=== PATIENT | female | born 1970 | race Caucasian/White ===

== ENCOUNTER 2023-11-08 06:56 | Outpatient (CLI) | payer OTHER, SELFPAY ==
--- NOTE | ~2023-11-08 | CT_ITS ---
EXAMINATION: CT sinus wo con DATE: 11/08/2023 07:10 INDICATION: Chronic sinusitis. TECHNIQUE: Computed tomography (CT) of the paranasal sinuses was performed without intravenous contra st. Iterative reconstruction technique was employed. The dose-length product was 304.88 mGy-cm. COMPARISON: None FINDINGS: The frontal sinuses are clear. There is mild mucosal thickening in the bilateral ethmoid si nuses. The sphenoid sinuses are clear. There is mild mucosal thickening in left maxillary sinus. Righ t maxillary sinus is clear. The ostiomeatal units are patent. There is leftward deviation of superior nasal septum, rightward deviation of mid nasal septum, and leftward deviation of inferior nasal sept um. IMPRESSION: 1. Mild mucosal thickening in the ethmoid and left maxillary sinuses. Reviewed, dictated and finalized at location A.
== END 2023-11-08 06:57 | disposition home or self-care (01) ==
LOC: ANHIMG 06:57
PROVIDERS: PCP Internal Medicine; Visit Provider Otolaryngology
DX: J01.01 Acute recurrent maxillary sinusitis (principal); H69.90 Unspecified Eustachian tube disorder, unspecified ear; H65.499 Other chronic nonsuppurative otitis media, unspecified ear
CPT/HCPCS: 70486

== ENCOUNTER 2023-11-29 08:08 | Outpatient (CLI) | payer OTHER, SELFPAY | END 2023-11-29 08:09 | disposition home or self-care (01) | LOC: ANHAUDIO 08:08 | PROVIDERS: PCP Internal Medicine; Visit Provider Otolaryngology | DX: H65.499 Other chronic nonsuppurative otitis media, unspecified ear (principal); H69.90 Unspecified Eustachian tube disorder, unspecified ear; J01.01 Acute recurrent maxillary sinusitis; H90.A21 Sensorineural hearing loss, unilateral, right ear, with restricted hearing on the contralateral side; H90.A12 Conductive hearing loss, unilateral, left ear with restricted hearing on the contralateral side | CPT/HCPCS: 92557; 92567 ==

== ENCOUNTER 2025-06-03 06:20 | Emergency (ER) | payer OTHER, SELFPAY ==
--- NOTE | ~2025-06-03 | CT_ITS ---
CT HEAD CTA NECK, CTA HEAD Clinical History: left side numbness Comparison: None TECHNIQUE: Unenhanced axial images skull base to vertex Coronal, sagittal reformats Helical images thoracic inlet to vertex IV contrast information not listed in PACS Coronal, sagittal reformats. Multiplanar MIPS. CT images acquired with automatic exposure control for dose reduction DLP: 1701 mGy-cm Findings: CT HEAD Sulci, ventricles: Unremarkable. No intracerebral hemorrhage. No evidence acute territorial infarct. No mass effect, midline shift. Bony calvarium intact. Visualized paranasal sinuses: Clear. Mastoid air cells: Clear. No abnormal foci of contrast enhancement. Patent dural venous sinuses. CTA NECK NASCET Criteria utilized Aortic arch: No aneurysm or dissection. Great vessel origins: No stenosis. CCAs: No dissection. No stenosis. Cervical ICAs: No dissection. No stenosis. Vertebral Arteries: Patent. Left side arises directly from arch. Lung Apices: Clear. Thyroid: Unremarkable. Nodes: No enlarged nodes. Bones: No acute bony abnormality. CTA HEAD: Aneurysms: None. Intracranial ICAs: Patent, unremarkable. ACAs and their distal branches: Left A1 congenitally absent. Otherwise patent. A-Comm: Identified. Patent, unremarkable. MCAs and their distal branches: Patent, unremarkable. Basilar artery: Patent, unremarkable. cash posting representative and their distal branches: Patent, unremarkable. P-Comms: Identified. IMPRESSION: CT HEAD: 1. No acute intracranial findings. CTA NECK: 1. No ICA stenosis or other acute arterial abnormality. CTA HEAD: 1. No large vessel arterial occlusive disease or other acute findings. 2. No aneurysms. Reviewed, dictated and finalized at location R. STAFF NURSE
--- NOTE | ~2025-06-03 | XR_ITS ---
Examination: XR chest 2V Clinical History: left rib pain, LEFT ARM NUMBNESS Comparison: None Technique: PA and Lateral Findings: Cardiomediastinal silhouette normal size and configuration. Lungs clear. A few tiny calcified granulomata. No acute bony abnormality. IMPRESSION: 1. No acute cardiopulmonary findings. Reviewed, dictated and finalized at location R. ER MACHINIST
[2025-06-03 06:22] VITALS: BP 127/67; PULSE 105; RESP 18; TEMP 36.6; O2SAT 100
--- NOTE | 2025-06-03 07:20 | ECG_ITS ---
Test Date: 2025-06-03 07:34:57 Measurements Intervals [place] Rate: 86 P: 47 PA: 124 QRS: 87 QRSD: 98 T: 54 QT: 358 QTc: 428 Interpretive Statements SINUS RHYTHM BASELINE ARTIFACT- III NORMAL ECG No previous ECG available for comparison Electronically Signed On 06-03-2025 07:50:36 NUMERICAL CONTROL MACHINE MACHINIST by Urbano Herrera D.O.
[2025-06-03 07:44] VITALS: BP 122/89; PULSE 84; RESP 20; O2SAT 97
[2025-06-03 07:47] LABS: Hematocrit 41.1 % (37.0-47.0); Hemoglobin 13.4 g/dL (12.0-15.0); Immature Granulocyte Percent A 0.5 % (0-0.5); Lymphocytes Absolute Auto 1.54 K/mm3 (0.9-3.2); Mean Corpuscular HGB Conc 32.6 g/dl (32-36); Mean Corpuscular Hemoglobin 30.9 pg (26-34); Mean Corpuscular Volume 94.7 fl (80-100); Nucleated Red Blood Cells Absolute Auto 0.000 K/mm3 (0.0-0.012); Nucleated Red Blood Cells Perc 0.0 % (0.0-0.2); Platelet Count Result 244 k/mm3 (150-375); Red Blood Count 4.34 M/mm3 (4.2-5.4); White Blood Count 6.0 K/mm3 (4.5-10.0)
[2025-06-03 07:48] LABS: BEDSIDEPREGUCG Negative (Negative)
[2025-06-03 07:53] LABS: Add Urine Microscopic? YES; Appearance Urine Clear (Clear); Glucose Urine UA Negative (Negative); Leukocyte Esterase Ur Trace LEU/UL (Negative); Nitrate Urine Negative (Negative); Non Pathogenic Casts 0-2; Specific Grav Ur 1.012 (1.001-1.035)
--- NOTE | 2025-06-03 07:54 | ED.GENADULT ---
HPI - General Adult General Chief complaint: Extremity Problem,Nontraumatic Stated complaint: Numbness on left side Time Seen by Provider: 06/03/25 07:04 Source: patient, RN notes reviewed and old records reviewed Mode of arrival: ambulatory Limitations: no limitations History of Present Illness HPI narrative: THis is a 54 year old female with history of anxiety who presents for evaluation of left side numbness and tingling. She states that for the past 2 weeks she has felt pins and needles to left arm and left leg. She states this started after trying to open her door when it was frozen shut. She thinks she could have pulled a muscle. She reports mild left neck pain that resolves with biofreeze. She is also reporting tingling from left knee down her leg as well that occurs intermittently. She denies weakness, headache, difficulty with speech, blurred vision. She also reports having a few minute episode of left rib pain that has currently resolved. Related Data Home Medications ?Medication ?Instructions ?Recorded ?Confirmed ?Last Taken ?Type alprazolam 1 mg tablet (Xanax) 1 mg PO TID 03/03/23 06/03/25 06/03/25 History diphenhydramine HCl 25 mg capsule 25 mg PO QHS PRN 03/03/23 03/03/23 Unknown History (Benadryl) levocetirizine 5 mg tablet (Xyzal) 5 mg PO DAILY 12/27/23 Unknown History mecobalamin (vitamin B12) 1,000 1,000 mcg PO DAILY 12/27/23 Unknown History mcg chewable tablet Allergies Allergy/AdvReac Type Severity Reaction Status Date / Time cephalexin (From Keflex) Allergy Intermediate Tachycardia Verified 06/03/25 06:22 ciprofloxacin Allergy Intermediate Unknown Verified 06/03/25 06:22 Erythromycin Allergy Intermediate Gastrointestinal Uncoded 12/27/23 08:11 Upset PMFSH Past Medical History Medical History Chronic sinusitis Anxiety Allergies Surgical History Surgical History History of tubal ligation (~1995) History of hernia repair (~1969) Family History Family History Father Lymphoma Mother Pancreatic cancer Hypertension Depression Anxiety Grandparent Heart disease Breast cancer Social History Social History Social History: Caffeine-tea Smoking packs per day: 1 Smoking cigarettes per day: 20.0 Years smoked: 25 Smoking pack-years: 25.00 Smoking status: Current every day smoker Tobacco type: cigarettes Second hand tobacco smoke exposure: Yes Alcohol intake: never Substance use: never Substance use type: does not use Lack of Transportation: No Lack of Food: Never True Current Housing: I Have Housing Concerned About Future Housing: No Difficulty Paying Gas/Electric Bills: No Difficulty Paying for Meds: No Currently Unemployed: No Education: High School Diploma/GED Difficulty w/ Childcare or Family Care: No Exam Const: General: no acute distress and alert Nutritional Appearance: well nourished Orientation/consciousness: patient oriented x3 Limitations: no limitations HENMT: Head: normal to inspection Face and sinus: normal facial exam Mouth: Yes Normal oral and palatal mucosa present, Yes lip normal and Yes moist mucous membranes Throat: posterior oropharynx normal and uvula midline Eyes: Conjunctivae: conjunctivae normal Pupils: Equal, round and reactive pupils present EOM: EOMs intact bilaterally Neck: Neck: normal visual inspection Chest: Chest palpation & inspection: normal inspection of the chest Resp: Effort & Inspection: normal respiratory effort Auscultation: clear to auscultation bilaterally Cardio: Rate: regular rate Rhythm: regular rhythm Heart sounds: no murmurs GI: GI Palp: Yes Soft to palpation, No Tenderness to palpation present (GI), No Guarding due to palpation present (GI) and No Rigid due to palpation Auscultation: normal bowel sounds : General: Yes no CVA tenderness Back/Spine/Pelvis: Back: no CVA tenderness Skin: General skin exam: normal color Rashes: no rashes Neuro: General: patient oriented x3, moves all extremities, no focal motor deficits and CN's II-XI intact bilaterally Cranial nerves: Yes Nystagmus not present Speech: normal speech Gait exam (Neuro): Normal gait present Extrem: General: normal to inspection, no clubbing, cyanosis or edema and no pedal edema Psych: Mental Status: mental status grossly normal Affect: normal affect Attitude: cooperative Course Reevaluation(s) Reevaluation #1: I have spoke with patient about labs are unremarkable and CTA did not shows any acute findings or stenosis. She is reports that heating pad and pain patches resolves her tingling pain to left arm which makes it seem to be peripheral issue and not CVA. She had normal neurological examination. sHe reports she has prescription for muscle relaxer. I discussed I will place on steroid dose as well. She will follow up with PCP Date: 06/03/25 Time: 08:59 Vital Signs Vital signs: Vital Signs Temperature 97.9 F 06/03/25 06:22 Pulse Rate 105 H 06/03/25 06:22 Respiratory Rate 18 06/03/25 06:22 Blood Pressure 127/67 06/03/25 06:22 Pulse Oximetry 100 06/03/25 06:22 Temperature 97.9 F 06/03/25 06:22 Pulse Rate 76 06/03/25 09:39 Respiratory Rate 20 06/03/25 09:39 Blood Pressure 117/68 06/03/25 09:39 Pulse Oximetry 98 06/03/25 09:39 [facility] Narrative Medical decision making narrative: Patient reports paresthesia to left lower arm and left lower leg that it is unclear if related or two separate injuries/issues. HEr neurological exam is normal. SHe reports symptoms worse with heating pain so may be muscular. labs, CTA Brain and carotid were ordered and troponin with her reports brief episode of left rib pain. CTA did not show any stenosis or aneuryms. CT Brain negative as well. PAtient has normal exam so will discharge for outpatient evaluation. Does not seem to be TIA or cva. She was given return precautions. Differential Diagnosis Differential Diagnosis: nerve radiculopathy, anxiety, TIA, CVA, neuropathy, strained muscle, Medical Records I have reviewed the following patient records and this information was taken into consideration when formulating the assessment and plan.: previous labs and previous hospitalizations Lab Data [facility] Lab Attestation statement: I personally reviewed the patient's lab results. 06/03/25 07:40 06/03/25 07:40 Labs: Lab Results 06/03/25 06/03/25 Range/Units 07:40 07:44 WBC 6.0 (4.5-10.0) K/mm3 RBC 4.34 (4.2-5.4) M/mm3 Hgb 13.4 (12.0-15.0) g/dL Hct 41.1 (37.0-47.0) % MCV 94.7 (80-100) fl MCH 30.9 (26-34) pg MCHC 32.6 (32-36) g/dl RDW 13.1 (11.5-14.5) % Plt Count 244 (150-375) k/mm3 MPV 9.6 (7.4-10.4) fl Immature Gran % (Auto) 0.5 (0-0.5) % Neut % (Auto) 63.7 (45.5-73.1) % Lymph % (Auto) 25.6 (18.3-44.2) % Tate % (Auto) 6.7 (2.6-8.5) % Eos % (Auto) 2.2 (0-4.4) % Baso % (Auto) 1.3 H (0.2-1.2) % Lymph # (Auto) 1.54 (0.9-3.2) K/mm3 Tate # (Auto) 0.4 (0.1-0.6) K/mm3 Eos # (Auto) 0.1 (0-0.3) K/mm3 Baso # (Auto) 0.1 (0.0-0.1) K/mm3 Abs Immat Gran (auto) 0.03 (0.00-0.031) K/mm3 Absolute Neuts (auto) 3.8 (1.3-6.7) K/mm3 Absolute Nucleated RBC 0.000 (0.0-0.012) K/mm3 Nucleated RBC % 0.0 (0.0-0.2) % PT 13.0 (11.1-14.7) Seconds INR 1.0 APTT 26.0 (22.3-36.8) Seconds Sodium 138 (137-145) mmol/L Potassium 3.9 (3.4-5.0) mmol/L Chloride 110 H (98-107) mmol/L Carbon Dioxide 25 (22-30) mmol/L Anion Gap 3 L (4-12) mmol/L BUN 8 (7-17) mg/dL Creatinine 0.65 L (0.7-1.0) mg/dL Estim Creat Clear Calc 80 ml/min Estimated GFR > 60 (59 - ) Glucose 92 (65-110) mg/dL Calcium 9.1 (8.4-10.2) mg/dL Magnesium 2.2 (1.6-2.3) mg/dL Total Bilirubin 0.4 (0.2-1.3) mg/dL AST 23 (14-36) U/L ALT 11 (6-35) U/L Alkaline Phosphatase 66 (38-126) U/L Troponin I < 0.012 (0.000-0.034) ng/mL NT-Pro-B Natriuret Pep 179 H (19.9-100) pg/mL Total Protein 6.8 (6.3-8.2) g/dL Albumin 4.3 (3.5-5.1) g/dL Lipase 44 (23-300) U/L Urine Color Yellow (Yellow) Urine Appearance Clear (Clear) Urine pH 7.5 (5.0-9.0) Ur Specific [place] 1.012 (1.001-1.035) Urine Protein Negative (Negative) mg/dL Urine Glucose (UA) Negative (Negative) mg/dL Urine Ketones Negative (Negative) mg/dL Ur Blood (Man) Negative (Negative) Urine Nitrate Negative (Negative) Urine Bilirubin Negative (Negative) Urine Urobilinogen 0.2 (<2.0) mg/dL Leukocyte Esterase Rfl Trace H (Negative) TERE/UL Urine RBC 0-2 (0-2) /hpf Urine WBC 0-5 (0-3) /hpf Ur Squamous Epith Cells None seen (Few) /hpf Urine Bacteria None seen /hpf Urine Casts 0-2 POC Urine HCG, Qual Negative (Negative) Urine Opiates Screen Negative (Negative) Urine Methadone Screen Negative (Negative) Ur Barbiturates Screen Negative (Negative) Ur Phencyclidine Scrn Negative (Negative) Ur Amphetamine Screen Negative (Negative) U Benzodiazepines Scrn Positive A (Negative) Urine Cocaine Screen Negative (Negative) U Cannabinoids Screen Negative (Negative) Imaging Data Radiologist's impression: ITS Impressions Chest X-Ray 06/03/25 08:26 IMPRESSION: 1. No acute cardiopulmonary findings. Head/Neck CTA 06/03/25 08:27 IMPRESSION: CT HEAD: 1. No acute intracranial findings. CTA NECK: 1. No ICA stenosis or other acute arterial abnormality. CTA HEAD: 1. No large vessel arterial occlusive disease or other acute findings. 2. No aneurysms. ECG Data EKG #1: Attestation: I personally reviewed and interpreted this ECG as follows: ECG completion date: 06/03/25 ECG completion time: 09:02 normal rate, sinus rhythm, no ST changes, NL axis and no acute changes Discharge Plan Discharge Clinical Impression: Paresthesia and pain of extremity Patient Disposition: Home Condition: Stable Instructions: Antibiotic Form, Paresthesia (ED) Additional Instructions: I recommend that your follow up with your primary care provider within 1 week. If your symptoms worsen return to ER Patient Language: Spanish Prescriptions: New methylprednisolone [Medrol (Gideon)] 4 mg tablets,dose pack See Rx Instructions .ROUTE .COMPLEX Qty: 21 0RF Rx Instructions: for 6 days No Action diphenhydramine HCl [Benadryl] 25 mg capsule 25 mg PO QHS PRN alprazolam [Xanax] 1 mg tablet 1 mg PO TID levocetirizine [Xyzal] 5 mg tablet 5 mg PO DAILY mecobalamin (vitamin B12) 1,000 mcg tablet,chewable 1,000 mcg PO DAILY Follow-up/Referrals: Irving,Harvey De Jesus MD [Primary Care Provider] Quality Stroke Scale Stroke Scale 1: Stroke scale date:: 06/03/25 Stroke scale time:: 07:04 1a Level of consciousness: alert-0 1b Level of consciousness questions: answers both correctly-0 1c Level of consciousness commands: obeys both correctly-0 2 Best gaze: normal-0 3 Visual: no visual loss-0 4 Facial palsy: normal-0 5a Motor: left arm: no drift-0 5b Motor: right arm: no drift-0 6a Motor: left leg: no drift-0 6b Motor: right leg: no drift-0 7 Limb ataxia: absent-0 8 Sensory: normal-0 9 Best language: no aphasia-0 10 Dysarthria: normal-0 11 Extinction and inattention: no abnormality-0 Level:: 0
[2025-06-03 08:00] LABS: Alanine Aminotransferase 11 U/L (6-35); Albumin Level 4.3 g/dL (3.5-5.1); Alkaline Phosphatase 66 U/L (38-126); Anion Gap 3 mmol/L (4-12); Aspartate Amino Transferase 23 U/L (14-36); Bilirubin,Total 0.4 mg/dL (0.2-1.3); Blood Urea Nitrogen 8 mg/dL (7-17); Calcium 9.1 mg/dL (8.4-10.2); Carbon Dioxide 25 mmol/L (22-30); Chloride 110 mmol/L (98-107); Estimated CRCL calculation 80 ml/min; Estimated Glomerular Filt Rate > 60; Glucose 92 mg/dL (65-110); Lipase 44 U/L (23-300); Magnesium 2.2 mg/dL (1.6-2.3); Potassium 3.9 mmol/L (3.4-5.0); Sodium 138 mmol/L (137-145); Total Protein 6.8 g/dL (6.3-8.2)
[2025-06-03 08:07] LABS: INR 1.0; Partial Thromboplastin Time 26.0 Seconds (22.3-36.8); Prothrombin Time 13.0 Seconds (11.1-14.7)
[2025-06-03 08:11] LABS: NT Pro B Type Natriuretic Pept 179 pg/mL (19.9-100); Troponin I < 0.012 ng/mL (0.000-0.034)
[2025-06-03 08:52] LABS: Cannabinoid Screen Urine Negative (Negative)
--- OUTSIDE RECORDS SUMMARY | 2025-06-03 09:21 | XMS_ITS | Data Portability ---
Author Organization [facility] Iveth [facility] Address [address] [place] [address] Care Team Providers Care Summer Associate Name Role Phone MARK MOLINA Primary Care Provider YUN KLINE Tie Puller Assessment Encounter Date Assessment Date Assessment LastModified by Organization Details LastModified Time 05/12/2020 05/12/2020 ASHANTI Looney PA-S Not available 05/12/2020 22:51:43 Plan of Treatment Reminders Order Date Submit Date Provider Last Modified By Organization Details Last Modified Time Details Appointments None record ed. 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 R, respir atory specim en - woodri ewa 1300 2020 [facility], [place] (Lab), [address] [place] [address], [id number], 1 11:26:14 PPD (purif ied protei n deriva tive), skin test 2019 020 In-Office Order, Internal Use Only DO Not Attach Compendium DO Not Attach Compendium, Do Not Delete/merge, 0 13:40:11 PPD (purif ied protei n deriva tive), skin test 2019 LOLIS In-Office Order, Internal Use Only DO Not Attach Compendium DO Not Attach Compendium, Do Not Delete/merge, 0 18:03:06 urinal ysis, dipsti ck 2019 [email or web address] In-Office Order, Internal Use Only DO Not Attach Compendium DO Not Attach Compendium, Do Not Delete/merge, [id number] 0 18:20:23 Referral ilan york referr al 2019 Chris (), [address] [place] [address], [phone], 0 12:05:49 Procedures None record ed. Surgeries None record ed. Imaging None record ed. Medication Orders cetiri zine 10 mg tablet 2019 INTERFACE Not available 0 17:16:31 Tubers ol 5 tub. unit/0 .1 mL intrad ermal inject ion soluti on 2019 [email or web address] Not available 0 17:47:45 sertra line 25 mg tablet 2019 [email or web address] Not available 0 12:53:19 Zoloft 50 mg tablet 2019 Not available 0 15:42:32 Patient TargetsNo targets recorded. Patient Instructions Encounter Date Encounter Id Patient Instructions Last Modified By Organization Details Last Modified Time 04/15/2020 [id number] anxiety disorder : care instructions Not available 04/15/2020 12:05:45 05/12/2020 [id number] managing your allergies: care instructions Not available 05/12/2020 17:16:28 07/04/2020 [id number] Reviewed the following recommendations: -Stay home and separate from others as much as possible. -Monitor your symptoms and seek medical attention for trouble breathing, persistent chest pain, confusion, or bluish lips or face. -Wear a mask if you must be around other people. -Wash your hands often for 20 seconds with soap and water and clean high-touch surfaces daily -You may discontinue home isolation if your symptoms are improving and it has been 10 days since symptoms started. [email or web address] Not available 07/04/2020 11:13:17 Reason for Referral Counseling Referral for Gene ralized anxiety disorder Anxiety Referring Physician: Yun Kline, Power Cutting Machine Operator, Encounter Date: 04/15/2020 Results Created Date Observation Date Name Description Value Unit Range Abnormal Flag Note LastModifiedBy Organization Detail LastModifiedTime 05/12/2005/12/2020 urina lysis , dipst ick Leukocytes Trace Not Available In-Offi ce Order Internal Use Only DO Not Attach Compendium DO Not Attach Compendium, Do Not Delete/merge, [id number] 05/12/2020 16:35:20 05/12/20 20 05/12/2020 urina lysis , dipst ick Nitrite negati ve Not Available In-Office Order Internal Use Only DO Not Attach Compendium DO Not Attach Compendium, Do Not Delete/merge, [id number] 05/12/2020 16:35:20 05/12/20 20 05/12/2020 urina lysis , dipst ick Urobilinogen .2 Not Available In-Of fice Order Internal Use Only DO Not Attach Compendium DO Not Attach Compendium, Do Not Delete/merge, [id number] 05/12/2020 16:35:20 05/12/20 20 05/12/2020 urina lysis , dipst ick Protein Negati ve Not Available In-Office Order Internal Use Only DO Not Attach Compendium DO Not Attach Compendium, Do Not Delete/merge, [id number] 05/12/2020 16:35:20 05/12/20 20 05/12/2020 urina lysis , dipst ick pH 8.5 Not Available In-Office Order Internal Use Only DO Not Attach Compendium DO Not Attach Compendium, Do Not Delete/merge, [id number] 05/12/2020 16:35:20 05/12/20 20 05/12/2020 urina lysis , dipst ick Blood Negati ve Not Available In-Office Order Internal Use Only DO Not Attach Compendium DO Not Attach Compendium, Do Not Delete/merge, [id number] 05/12/2020 16:35:20 05/12/20 20 05/12/2020 urina lysis , dipst ick Specific [place] 1.020 Not Available In-Off ice Order Internal Use Only DO Not Attach Compendium DO Not Attach Compendium, Do Not Delete/merge, [id number] 05/12/2020 16:35:20 05/12/20 20 05/12/2020 urina lysis , dipst ick Ketone Negati ve Not Available In-Office Order Internal Use Only DO Not Attach Compendium DO Not Attach Compendium, Do Not Delete/merge, [id number] 05/12/2020 16:35:20 05/12/20 20 05/12/2020 urina lysis , dipst ick Bilirubin Negati ve Not Available In-Office Order Internal Use Only DO Not Attach Compendium DO Not Attach Compendium, Do Not Delete/merge, [id number] 05/12/2020 16:35:20 05/12/20 20 05/12/2020 urina lysis , dipst ick Glucose Negati ve Not Available In-Office Order Internal Use Only DO Not Attach Compendium DO Not Attach Compendium, Do Not Delete/merge, [id number] 05/12/2020 16:35:20 05/15/20 20 05/15/2020 PPD (urvashi fied prote in deriv ative ), skin test Result Negati ve Not Available In-Office Order Internal Use Only DO Not Attach Compendium DO Not Attach Compendium, Do Not Delete/merge, [id number] 05/15/2020 13:20:11 05/19/20 20 05/19/2020 PPD (urvashi fied prote in deriv ative ), skin test Result Negati ve Not Available In-Office Order Internal Use Only DO Not Attach Compendium DO Not Attach Compendium, Do Not Delete/merge, [id number] 05/12/2020 17:12:44 Result Notes None recorded. Problems Name Problem SNOMED Code Status Onset Date Resolution Date Notes Provider Name and Address Organization Details Recorded Time Tobacco dependence syndrome 80223804 Active Cameron Peacock null, [place] - [facility] 6 10:38:01 Abnormal cervical Papanicolao u smear 668824562 Active Cameron Peacock [place] - [facility] 6 10:38:01 Cervicovagi nal cytology: Low grade squamous intraepithe lial lesion 715217548 Active Cameron Peacock null, [place] - [facility] 6 10:38:01 Abnormal vaginal Papanicolao u smear 008675123 Active Cameron marcus, [facility] 6 10:38:01 Low grade squamous intraepithe lial lesion on cervical Papanicolao u smear 1136677859959 5 Active Cameron marcus, [facility] 6 10:44:48 Problem Notes None recorded. Procedures Surgical History Date Name Laterality Status Provider Name and Address Organization Details Recorded Time 06/27/19 19 Date of Last Mammogram completed Gwen Rosales MA [facility] 05/12/2020 16:30:35 01/05/20 18 Vulvar Biopsy completed Pierre Padilla [facility] 018 11:40:06 10/26/19 18 LEEP completed Anthony Gonzalez [place] - [facility] 08/15/2018 09:55:29 08/31/19 18 Colposcopy completed Vandana Streeter MD Attn: [employer] [place], [address], [facility] 08/30/2017 11:25:29 07/21/19 18 Date of Last Pap Smear completed Shannan Velez [place] [facility] 11/08/2017 08:24:45 03/25/20 16 Colposcopy completed Cameron Peacock [facility] 03/25/2016 15:25:58 06/27/18 96 Tubal Ligation completed Shannan Velez MA [facility] 2015 14:47:45 Other completed Shannan Velez MA [facility] 03/25 14:47:45 Imaging Results None recorded. Procedure Notes None recorded. Medical Equipment None Reported. Allergies Allergen ID Allergen Name Allergen Category Reaction Reaction Severity Criticality Documentation Date Start Date Code Code System Note Provider Name and Address Organization Details Recorded Time 345416 Keflex medicatio n tachycard ia severe Not available 07/21/201788569 7 RxNorm TABATHA Miller, [facility] 8 11:31:10 531642 Cipro medicatio n tachycard ia severe Not available 07/21/201765154 3 RxNorm TABATHA Miller, [facility] 8 11:31:28 45198 erythromy madalyn medicatio n vomiting severe Not available 02/12/2016 4053 RxNorm Diarr Mary trinidad MA [facility], [facility] 6 14:47:04 Medications Name Sig Start Date Stop Date Status Note LastModified by Organization Details LastModified Time amoxicill in 500 mg capsule active Not Available Not Available Not Available doxycycli ne hyclate 100 mg capsule active Not Available Not Available Not Available cetirizin e 10 mg tablet Take 1 tablet every day by oral route. active Not Available Not Available No t Available alprazola m 1 mg tablet Take 1 tablet 3 times a day by oral route. active Not Available Not Available No t Available fluconazo le 150 mg tablet Take 1 tablet by oral route for 1 day. 05/12 completed Not Available Not Available Not Available Tubersol 5 tub. unit/0.1 mL intraderm al injection solution Administ er .1ml interder arnulfo 2019 active Not Available Not Available Not Avai lable acyclovir 800 mg tablet Take 1 tablet every day by oral route for 1 day. 05/12 completed Not Available Not Available Not Available Flagyl 500 mg tablet Take 1 tablet twice a day by oral route for 7 days. 01/04 completed Not Available Not Available Not Available sertralin e 25 mg tablet Take 1 tablet every day by oral route. 05/21 completed Patient requeste d to increase med back to 50mg daily Not Available Not Available Not Available prednisol one 15 mg/5 mL oral solution Take 5 mL every day by oral route. 01/04 completed Not Available Not Available Not Available methylpre dnisolone 4 mg tablets in a dose pack 05/12 completed Not Available Not Available Not Available sertralin e 50 mg tablet TAKE ONE TABLET BY MOUTH AT BEDTIME 2020 active Not Available Not Available Not Avai lable Daily-Vit e tablet Take 1 tablet every day by oral route. active Not Available Not Available No t Available ProAir HFA 90 mcg/actua tion aerosol inhaler active Not Available Not Available Not Available calcium 600 mg (as carbonate )-vitamin D3 10 mcg (400 unit) tablet Take 1 tablet twice a day by oral route. active Not Available Not Available No t Available Vitals Date Recorded Body height Body mass index (BMI) Body weight Systolic And Diastolic Provider Name and Address Organization Details Last Updated DateTime 04/15/2020 170.18 cm 21.6 kg/m2 15358.75 g 122/76 mm[Hg] Jerri Haddad MA [facility] 04/15/2020 11:11:00 Date Recorded Body height Provider Name an d Address Organization Details Last Updated DateTime 05/02/2020 170.18 cm Jerri Haddad MA [facility] 05/02/20 20 15:18:46 Date Recorded Body height Body mass index (BMI) Body weight Systolic And Diastolic Provider Name and Address Organization Details Last Updated DateTime 05/12/2020 170.18 cm 21.3 kg/m2 84629.56 g 112/68 mm[Hg] Gwen Rosales MA [facility] 05/12/2020 16:37:36 Date Recorded Body height Provider Name an d Address Organization Details Last Updated DateTime 05/15/2020 170.18 cm Gwen Rosales MA [facility] 05/15 13:19:25 Social History Question Answer Notes LastModified by Organizat ion Details LastModified Time Tobacco Smoking Status Current Every Day Smoker Vandana Streeter MD Attn: [facility],[address] [place], [address], [facility] 08/15/2018 10:45:56 Do You Have An Advance Directive? No Information not available 03/25/2016 Is Blood Transfusion Acceptable In An Emergency? Yes Information not available 03/25/2016 What Is Your Level Of Caffeine Consumption? Heavy Information not available 03/25/2016 How Much Tobacco Do You Chew? None Information not available 03/25/2016 What Type Of Diet Are You Following? REGULAR Information not available 03/25/2016 Which Illicit Or Recreational Drugs Have You Used? Denies None Information not available 05/12/2020 Education 2 Year College Information not available 03/25/2016 Live Alone Or With Others? With Others Information not available 03/25/2016 What Was The Date Of Your Most Recent Tobacco Screening? 05/12/2020 Information not available 05/12/2020 How Many Children Do You Have? 3 Information not available 05/12/2020 Performs Monthly Self-breast Exam? Yes Information not available 03/25/2016 Do You Use Protection During Sex? Usually Information not available 03/25/2016 What Is Your Relationship Status? Single Information not available 03/25/2016 Seat Belts Used Routinely Yes Information not available 03/25/2016 Are You Sexually Active? Yes Information not available 03/25/2016 At What Age Did You Start Smoking Tobacco? 27 Information not available 03/25/2016 How Much Tobacco Do You Smoke? 0.5 PPD [email or web address] Information not available 05/02/2020 General Stress Level Low Information not available 03/25/2016 Do You Use Sunscreen Routinely? No Information not available 03/25/2016 On What Date Was Tobacco Cessation Counseling Provided? 05/12/2020 Interested In Quitting Information not available 05/12/2020 How Many Years Have You Smoked Tobacco? 18 Information not available 03/25/2016 Sex: Unknown Functional Status Question Answer Note LastModified by Organizat ion Details LastModified Time What is your level of alcohol consumption? None Information not available 03/25/2016 Do you or have you ever used smokeless tobacco? Never used smokeless tobacco Information not available 05/12/2020 Are you currently employed? 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 Never used electronic cigarettes Information not available 05/12/2020 What is your exercise level? None Information not available 03/25/2016 Mental Status None recorded. Family History Relationship Description Onset Age of this Age Resolved Age Notes LastModified by Organization Details LastModified Time Paternal Grandmother Malignant neoplasm of breast [email or web address] Not available 2015 10:38:09 Medical History Condition Response Other Y High Blood Pressure N Breast Cancer N Thyroid Problems N Kidney or Bladder Problems N Lung Disease N Depression N Blood Clots N GI Problems N Acne N Eating Disorder N Breast Problem N Anemia N Anesthesia Complications N Headaches/Migraines N Anxiety Disorder Y Ovarian Cancer N Diabetes N Muscle, Joint, or Bone Problems N Blood Transfusions N Seizures/Epilepsy N Infertility N Polyps N Acid Reflux (GERD) N Cancer N Abuse/Domestic Violence N Asthma N Endometriosis N High Cholesterol N Hepatitis N Liver Disease N Heart Disease N Pre-Eclampsia N Osteoporosis N Gynecological History Statement/Question Response Abnormal Pap Y Date of Last Mammogram 06/27/2018 Flow Light STIs/STDs N HPV Vaccine N Age at Menarche 13 Current Control Method Tubal Ligat ion Age at First Child 15 If Post Menopausal, Age at Menopause 47 Sexually Active? Y Menses Monthly N Date of Last Pap Smear 07/21/2017 Sexual Problems? N LMP Definite Desired Control Method Sterilizati on Obstetrics History GPAL:G 3 P 3 0 0 3 Type Value Multiple Births 0 Full Term 3 Induced 0 Spontaneous 0 Premature 0 Living 3 Ectopics 0 Total 3 Immunizations Vaccine Type Date Status Note Provider Nam e and Address Organization Details Recorded Time COVID-19, mRNA, LNP-S, PF, 100 mcg/0.5mL dose or 50 mcg/0.25mL dose 07/31/2020 completed Rogelio God[place], [place] [facility] 12/23/2020 13:22:59 COVID-19, mRNA, LNP-S, PF, 100 mcg/0.5mL dose or 50 mcg/0.25mL dose 09/02/2020 paxton God[place] [facility] 12/23/2020 13:23:15 Tdap 05/12/2020 completed Gwen Rosales [place], [place] [facility] 05/21/2020 15:49:08 Past Encounters Encounter ID Performer Location Encounter Start Date Encounter Closed Date Diagnosis/Indication Diagnosis SNOMED-CT Code Diagnosis ICD10 Code Diagnosis IMO Codes Diagnosis Note [id number] MD Chris Pickett (Adult Med) [address] [place] [phone] 02/12/2016 11:23:15 02/12/2016 12:22:03 Tobacco dependence syndrome 72581851 F17.290 Advised to quit smoking Screening for malignant neoplasm of breast 905263283 Z12.31 Gynecologi c examination 25915742 Z01.645 [id number] MD [facility] ([facility]) [address] [place] [phone] 03/25/2016 13:48:52 03/25/2016 15:59:58 Abnormal vaginal Papanicolaou smear 393971674 R87.459 [id number] [facility] [address] [place] [address] [phone] 04/02/2016 09:50:34 04/06/2016 12:46:30 Low grade squamous intraepithelial lesion on cervical Papanicolaou smear 6856323911 9105 R87.612 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 ECC was benign cells. This result is consistent with pap result. Recommende d follow up pap smear in six months for follow up. Patient seemed to understand and agrees. Literature on cervical dysplasia was given. [id number] [facility] [address] [place] [address] [phone] 07/21/2017 11:07:49 07/21/2017 13:04:47 Gynecologic examination 44857013 Z01.411 Age appropriat e counseling done. Screening mammography 23 927959 Z12.31 Venereal d isease screening 788559481 Z11.3 Patient refused blood work and nuswab Candidiasis of vagina 72 580996 B37.3 Counseled about it. Cervicovag inal cytology: Low grade squamous intraepithelial lesion 117483732 R87.612 in 2015 patient had LGSIL. Patient has colposcopy done at that time. No pathology report in chart. Advised nurse Luis to get records. PAP done today. Counseled about HPV and safe sex , use of condoms. If PAP comes back abnormal schedule for colposcopy . Irregular periods 961961 07 N92.6 Counseled about it including menopause. Offered work up. Patient refused to do blood work or ultrasound . She say she is self pay. [id number] MD Chris Lau ([facility]) [address] [place] [address] [phone] 08/30/2017 09:42:11 08/30/2017 13:05:43 Low grade squamous intraepithelial lesion on cervical Papanicolaou smear 4906796612 9105 R87.612 Counseled thoroughly about LGSIL and HPV. Safe sex counseling done. Counseled about colposcopy , cervical biopsy and ECC. Counseled about the procedure and its risks including infection, bleeding, damage to internal organs, indicated procedures . Patient verbalized understand ing. Consent signed which is in chart. Advised patient to go to ER if bleeding more than a pad per hour, fever > 100.4, and severe pain. test in office negative. [id number] Vandana Streeter MD [facility] ([facility]) [address] [place] [address] [phone] 09/06/2017 10:48:27 09/06/2017 13:24:29 Cervical intraepithelial neoplasia grade 2 188119953 N87.1 d/w patient pathology report of can not exclude MADALYN 2. Safe sex counseling and use of condoms. Counseled about LEEP. COUNSELED ABOUT RISK OF INFECTION, BLEEDING, BLOOD TRANSFUSIO N AND ITS RISKS, DAMAGE TO INTERNAL ORGANS, INDICATED PROCEDURES INCLUDING HYSTERECTO MY, CERVICAL INCOMPETEN CY, PTL, PTD, MISCARRIAG ES. Patient VERBALIZED UNDERSTAND ING.Urine test in office - negative today. [id number] Vandana Streeter MD [facility] ([facility]) [address] [place] [address] [phone] 11/08/2017 08:11:12 11/08/2017 10:43:02 Cervical intraepithelial neoplasia grade 2 228090776 N87.1 s/p LEEP. D/W patient pathology report and positive margins. Looking at her anatomy of cervix reLEEP will not be feasible. Offered patient repeating cytology and ECC in 4 months vs hysterecto my. Patient opted cytology and ECC in 4 months.Adv ised patient to go to ER if vaginal bleeding more than pad per hour, fever greater than 100.4, severe pelvic pain. Bacterial vaginosis 4197 56721 N76.0 Counseled about it. [id number] MD Chris Lau ([facility]) [address] [place] [address] [phone] 11/14/2017 12:04:49 11/14/2017 15:40:11 Cervical intraepithelial neoplasia grade 2 851203213 N87.1 s/p LEEP. D/W patient pathology report and positive margins. Looking at her anatomy of cervix reLEEP will not be feasible. Patient scheduled for cytology and ECC in 4 months. Patient say she has questions about hysterecto my in case she decides on it. Counseled patient about different forms of hysterecto mies, risks, hospital stay and recovery time for each type of hysterecto my, when to rreturn to work. Answered all questions. Patient scheduled for cytology and ECC in 4 months. She say at this time she wanted to do PAP & ECC in 4 months and in case she decideds on hysterecto my she will let me know.Advis ed patient to go to ER if vaginal bleeding more than pad per hour, fever greater than 100.4, severe pelvic pain. [id number] [facility] [address] [place] [address] [phone] 01/04/2018 10:26:05 01/04/2018 11:58:04 Lesion of vulva 126778849 N90.9 Exposure t o sexually transmissible disorder 501022078 Z20.2 [id number] MD Chris Lau ([facility]) [address] [place] [address] [phone] 03/13/2018 09:23:55 03/13/2018 10:29:25 Cervical intraepithelial neoplasia grade 2 977082552 N87.1 s/p LEEP. D/W patient pathology report and positive margins. Looking at her anatomy of cervix reLEEP will not be feasible. Cytology and ECC done today.Advi sed patient to go to ER if vaginal bleeding more than pad per hour, fever greater than 100.4, severe pelvic pain. [id number] MD Chris Lau ([facility]) [address] [place] [address] [phone] 03/27/2018 09:35:02 03/28/2018 09:37:30 Cervical intraepithelial neoplasia grade 2 983347020 N87.1 s/p LEEP. D/W patient Cytology and ECC report.Sec ondary to atypical squamous metaplasia on ECC - middleware systems architect referral. Cotesting in 4 months. [id number] MD Chris Lau ([facility]) [address] [place] [address] [phone] 08/15/2018 09:38:52 08/15/2018 14:32:26 Gynecologic examination 10585324 Z01.411 Age appropriat e counseling done. Smoker 19566035 F17.200 Breast lump 83653545 N63 .0 COUNSELED THOROUGHLY ABOUT IT. Cervical intraepithelial neoplasia grade 2 795363879 N87.1 s/p LEEP. D/W patient Cytology and ECC report.Sec ondary to atypical squamous metaplasia on ECC - middleware systems architect ONCOLOGY referral. PAP & ECC done today. Cotesting in 4 months. [id number] GAY CULLEN ([facility]) [address] [place] [address] [phone] 12/31/2019 09:57:05 01/01/2020 08:01:28 Gynecologic examination 54654273 Z01.419 -clinical breast & pelvic examinatio ns completed today, unremarkab le -cervical cancer screening completed today. -referral for mammogram issued for routine breast cancer screening. -routine STI panel completed, treat as needed -Educated osteoporos is prevention including calcium rich diet, weight bearing exercise. Will start supplement . -RTC in 1yr Screening for malignant neoplasm of breast 711431219 Z12.31 Cervical intraepithelial neoplasia grade 2 492346942 N87.1 Hx of MADALYN II s/p LEEP procedure on 10-25-17. Followed with yearly pap smears. Venereal d isease screening 724063890 Z11.3 Consent obtained. [id number] GAY CULLEN ([facility]) [address] [place] [address] [phone] 0 04/15/2020 10:14:09 04/16/2020 08:52:36 Generalized anxiety disorder 76362664 F41.1 49yo female w/ increased anxiety symptoms that are no longer managed w/ Xanax. She has never tried any other medication for anxiety before. Discussed different management options with patient including SSRIs and counseling . She is open to both. Start sertraline as prescribed . Referral to counseling . RTC in 4 weeks to reassess. [id number] GAY CULLEN ([facility]) [address] [place] [address] [phone] 05/02/2020 15:14:51 05/05/2020 12:44:06 Generalized anxiety disorder [id number] F41.1 Much improved. Continue sertraline 25mg at bedtime. Encouraged counseling . RTC in 3 months. [id number] [facility] ([facility]) [address] [place] [phone] 05/12/2020 16:02:35 05/12/2020 17:51:47 Influenza vaccination declined [id number] Z28.21 Allergic rhinitis 238500 04 J30.9 -Continue using flonase as prescribed . Start cetirizine daily. Care instructio ns provided. Adult heal th examination [id number] Z00.00 Full occupation al PE performed. No abnormal findings. Chasi form completed. Tuberculos is screening [id number] Z11.1 PPD placed today. RTC in 48-72 hours for reading. Active or passive immunization [id number] Z23 Last Tdap over 10 years ago, updated today. [id number] GAY CULLEN ([facility]) [address] [place] [phone] 05/15/2020 09:25:09 05/19/2020 13:51:19 [place]: negative [id number] Z11.1 [id number] [facility] [address] [place] [phone] 07/04/2020 10:29:33 07/07/2020 10:30:28 Viral screening [id number] Z11.52 Viral syndrome [id number] B34.9 Health Concerns Section Related Observation LastModified by Organization Detai ls LastModified Time None Recorded Concern Status LastModified by Organization Details LastModified Time None Recorded Advance Directives Directive N: Payers Insurance Date Sequence Insurance Name Policy Number Policy Burgos Covered Member ID Burgos Member ID Guarantor Name 04/15/2020 2 *SELF PAY* Samina Toussaint 04/15/2020 1 [facility] PRIOR TO 01/25/2025 (MEDICAID REPLACEMENT - HMO) [id number] Shelley Toussaint [id number] Shelley Toussaint 04/15/2020 1 [facility] [id number] Shelley Toussaint [id number] Shelley Toussaint 07/04/2020 1 [facility] PRIOR TO 2020 (MEDICAID REPLACEMENT - HMO) Shelley Toussaint [id number] Shelley Toussaint 03/25/2016 [facility] Shelley Toussaint [id number] Shelley Toussaint 12/31/2019 [facility]oussaint [id number] Shelley Toussaint 01/03/2020 1 [place] [facility] Shelley Toussaint [id number] Shelley Toussaint 04/15/2020 SLIDING FEE SCHEDULE - DISCOUNT Shelley Toussaint 09/22/2017 1 *SELF PAY* Samina Toussaint Notes Date Note Type Note Provider Name and Address Organization Details Recorded Time 04/15/2020 text/html Pt is a 49yo female presenting to clinic for complaint of anxiety. She has hx of chronic anxiety and states she has been taking Xanax since 2002 per PCP. Over the past couple of weeks she states her anxiety has kept her up at night and she has been getting tension headaches at the end of the day. She also has had a mixture of decreased appetite with episodes of binge eating. She does state that her she is very stressed as she takes care of her grandchildren and her daughter is expecting a baby soon. She has never tried any medication besides xanax for anxiety. She denies panic attacks. Denies depressive symptoms, denies SI/HI. GAY CULLEN Attn: [address] [place], [address], [place] [facility] 04/15/2020 17:51:13 05/02/2020 text/html ROS as noted in the HPI 49yo F presents via phone for follow up on anxiety. She was started on sertraline 50mg about a month and notes huge improve in symptoms. She states she tried taking whole pill but felt it was too much so she cuts them in half and takes 25mg at bedtime. She states anxiety symptoms well controlled. GAY CULLEN Attn: [address] [place], [address], [facility] 05/02/2020 17:39:25 05/12/2020 text/html Patient is a 49 yo female presenting for physical exam and TB test. She has been experiencing L ear pain that she describes as pressure after she was doing some yard work x 2 days. She has had a sore throat and nasal congestion. She has taken sudafed and flonase for the congestion. Denies tinnitus, ear discharge, fever, cough and sinus pain. Denies any TB exposures, weight loss and night sweats and chills. No difficulty with BM and urination. GAY CULLEN Attn: [address] [place], [address], [facility] 05/13/2020 15:35:07 07/04/2020 text/html Pt is requesting COVID-19 testing; as pt c/o chest pressure, nasal congestion, fever (as high as 100.1 F) x days. Pt reports being in contact with someone (son) who recently tested positive. Denies PMH. KIMANI Patel Attn: [address] [place], [address], [facility] 07/04/2020 11:13:45 OBGyn Episode Ob Episode Information Episode Created Date Number of Fetuses Patient Bloodtype Patient rh Status Prepregnancy Weight lbs Domestic Partner Domestic Partner Phone Father Name Private Banker Status 03/25/20 16 1 CLOSED Fetus Data First Name Last Name Admitted to NICU Weight (g) Sex Living Outcome Pediatric Complications Fetus ID Race Codes Race Delivery Type 3713.78 45 M Full Term 55513 Vaginal [place] Calculation Initial [place] Date Initial Exam Date Initial Exam Provider Initial Ultrasound Date Last Menstrual Period Date Ultra Sound Weeks Gestation 0 Eighteen To Twenty Week [place] Update Ultra Sound Date Fundal Height At Umbil Quickening Date Ultra Sound Latest Weeks Gestation Final [place] Confirmed By Final [place] Confirmed Date Final [place] Date Ultra Sound Latest Days Gestation 0 0 Menstrual History Last Menstrual Date Menses Monthly On Bcp Conception Prior Menses Frequency Hcg Plus Date Menarche Onset Age Delivery Information Delivery Date Delivery Type Labor Anesthesia Weeks Gestation Incision Type Labor Labor Length Hrs Delivered By Post Complications Tubal Sterilization Discharge Date Comments 0 [place] [address] Discharge Information Feeding Method Contraceptive Method Maternal HG B and HCT Levels Ob Episode Information Episode Created Date Number of Fetuses Patient Bloodtype Patient rh Status Prepregnancy Weight lbs Domestic Partner Domestic Partner Phone Father Name Private Banker Status 03/25/20 16 1 CLOSED Fetus Data First Name Last Name Admitted to NICU Weight (g) Sex Living Outcome Pediatric Complications Fetus ID Race Codes Race Delivery Type 3883.88 15 M Full Term 40151 Vaginal [place] Calculation Initial [place] Date Initial Exam Date Initial Exam Provider Initial Ultrasound Date Last Menstrual Period Date Ultra Sound Weeks Gestation 0 Eighteen To Twenty Week [place] Update Ultra Sound Date Fundal Height At Umbil Quickening Date Ultra Sound Latest Weeks Gestation Final [place] Confirmed By Final [place] Confirmed Date Final [place] Date Ultra Sound Latest Days Gestation 0 0 Menstrual History Last Menstrual Date Menses Monthly On Bcp Conception Prior Menses Frequency Hcg Plus Date Menarche Onset Age Delivery Information Delivery Date Delivery Type Labor Anesthesia Weeks Gestation Incision Type Labor Labor Length Hrs Delivered By Post Complications Tubal Sterilization Discharge Date Comments 6 [place] [address] Discharge Information Feeding Method Contraceptive Method Maternal HG B and HCT Levels Ob Episode Information Episode Created Date Number of Fetuses Patient Bloodtype Patient rh Status Prepregnancy Weight lbs Domestic Partner Domestic Partner Phone Father Name Private Banker Status 03/25/20 16 1 CLOSED Fetus Data First Name Last Name Admitted to NICU Weight (g) Sex Living Outcome Pediatric Complications Fetus ID Race Codes Race Delivery Type 3175.14 4 F Full Term [id number] Vaginal [place] Calculation Initial [place] Date Initial Exam Date Initial Exam Provider Initial Ultrasound Date Last Menstrual Period Date Ultra Sound Weeks Gestation 0 Eighteen To Twenty Week [place] Update Ultra Sound Date Fundal Height At Umbil Quickening Date Ultra Sound Latest Weeks Gestation Final [place] Confirmed By Final [place] Confirmed Date Final [place] Date Ultra Sound Latest Days Gestation 0 0 Menstrual History Last Menstrual Date Menses Monthly On Bcp Conception Prior Menses Frequency Hcg Plus Date Menarche Onset Age Delivery Information Delivery Date Delivery Type Labor Anesthesia Weeks Gestation Incision Type Labor Labor Length Hrs Delivered By Post Complications Tubal Sterilization Discharge Date Comments 3 Local 40 Discharge Information Feeding Method Contraceptive Method Maternal HG B and HCT Levels
[2025-06-03 09:39] VITALS: BP 117/68; PULSE 76; RESP 20; O2SAT 98
== END 2025-06-03 09:41 | disposition home or self-care (01) ==
PROVIDERS: Emergency Provider General Practice; PCP Internal Medicine
DX: R20.2 Paresthesia of skin (principal); F41.9 Anxiety disorder, unspecified
CPT/HCPCS: 36415; 70496; 70498; 71046; 80053; 80307; 81001; 81025; 83690; 83735; 83880; 84484; 85025; 85610; 85730; 93005; 99284; Q9967